=== PATIENT | male | born 1980 | race Caucasian/White ===

== ENCOUNTER 2021-05-15 10:03 | Emergency (ER) | payer OTHER, SELFPAY ==
[2021-05-15 10:25] VITALS: BP 149/104; PULSE 73; RESP 18; TEMP 36.6; O2SAT 100
--- NOTE | 2021-05-15 10:37 | ED.HA ---
HPI - Headache General Chief Complaint: Headache Stated Complaint: migraine Time Seen by Provider: 05/15/21 10:26 Source: patient and RN notes reviewed Mode of arrival: ambulatory Limitations: no limitations History of Present Illness HPI Narrative: Patient presents today complaining of 5 to 6-day history of migraine headache that has been worse over the last 2 3 days. Associated symptoms include nausea and vomiting, photophobia. Denies dizziness, lightheadedness, vision changes. Reports symptoms are similar to previous migraines. He currently rates his pain 7/10 and has been taking Tylenol and Aleve without relief. He has also been applying ice to his head without relief. MD elicited complaint: migraine Related Data Home Medications Medication Instructions Recorded Confirmed No Home Medications 05/15/21 05/15/21 Allergies Allergy/AdvReac Type Severity Reaction Status Date / Time No Known Allergies Allergy Verified 05/15/21 10:29 Review of Systems Review of Systems: CONSTITUTIONAL: Denies body aches, fever, chills, or sweats. EYES: Denies visual changes, redness, or discharge. ENT: Denies rhinorrhea, congestion, sore throat, or otalgia. CARDIOVASCULAR: Denies chest pain, palpitations, or edema. RESPIRATORY: Denies cough or dyspnea. GASTROINTESTINAL: Denies abdominal pain, or diarrhea.+ Nausea and vomiting GENITOURINARY: Denies dysuria or hematuria. SKIN: Denies rash, itching, or wounds. MUSCULOSKELETAL: Denies back pain, joint pain, or myalgia. NEUROLOGIC: Denies numbness, tingling, or weakness.+ Headache PSYCH: Denies depression or anxiety. [facility] Past Medical History Medical History (Updated 05/15/21 @ 11:21 by Key Marino, [facility], ) Migraines Comments At time of signature, I have reviewed and agree with nursing past medical, surgical, social and family history unless otherwise noted. Please see nursing chart for further information. There is no relevant family history pertinent to the presenting complaint Exam Narrative: GENERAL: Well-appearing, well-nourished, and in no acute distress. HEAD: Normocephalic, atraumatic. EYES: EOMI. PERRL. No redness or drainage. Conjunctivae normal. ENT: Mucous membranes pink and moist. NECK: Normal AROM. CHEST: No respiratory distress. Clear to auscultation. HEART: Regular rate and rhythm. No murmur appreciated. Normal peripheral pulses. EXTREMITIES: Normal range of motion. No edema. SKIN: Warm, dry, no rash. Capillary refill normal. Normal skin turgor. NEURO: No focal deficits. Alert and oriented x3. Gait steady. PSYCH: Normal affect. No signs of depression or anxiety. Course Course Emergency Course: 1120-after Toradol and Zofran, patient states his nausea has resolved and his pain is currently 2/10. Level of Care: Express Care Visit Vital Signs Vital signs: Vital Signs Temperature 97.9 F 05/15/21 10:25 Pulse Rate 73 05/15/21 10:25 Respiratory Rate 18 05/15/21 10:25 Blood Pressure 149/104 H 05/15/21 10:25 Pulse Oximetry 100 05/15/21 10:25 Temperature 97.9 F 05/15/21 10:25 Pulse Rate 73 05/15/21 10:25 Respiratory Rate 18 05/15/21 10:25 Blood Pressure 149/104 H 05/15/21 10:25 Pulse Oximetry 100 05/15/21 10:25 Reviewed. Pt has been instructed to follow up with his PCP regarding his elevated blood pressure today. MDM - Headache Differential Diagnosis Differential diagnosis: Likely migraine, tension headache and headache Critical Care Time Critical Care Time Critical Care Time: No Discharge Plan Discharge Clinical Impression: Migraine Qualifiers: Migraine type: unspecified Status migrainosus presence: with status migrainosus Intractability: not intractable Qualified Code(s): G43.901 - Migraine, unspecified, not intractable, with status migrainosus Patient Disposition: Home, Self-Care Condition: Stable Instructions: Migraine Headache (ED) Additional Instructions: Prescriptions for [place]
[2021-05-15] MEDS: ONDANSETRON HCL ODT 4 MG TABLET 8 MG SUBLINGUAL (10:48)
[2021-05-15] MEDS: KETOROLAC (*BKC) 60 MG/2 ML VIAL IM (10:49)
== END 2021-05-15 11:27 | disposition home or self-care (01) ==
PROVIDERS: Emergency Provider Nurse Practitioner
DX: G43.901 Migraine, unspecified, not intractable, with status migrainosus (principal)
CPT/HCPCS: 96372; 99213; A9270; G0463; J1885